=== PATIENT | male | born 1940 | race American Indian/Alaskan Native ===

== ENCOUNTER 2017-12-02 16:40 | Emergency (ER) | payer MEDICARE ==
[2017-12-02] MEDS ORDERED: ASPIRIN PO ONE (17:02)
[2017-12-02 17:23] VITALS: BP 106/63
[2017-12-02] MEDS ORDERED: NACL 0.9% 1000 ML 1,000 ML IV ONE (17:26)
[2017-12-02 17:30] LABS: Basophils % (Auto) 0.7 % (0.0-1.8); Eosinophils # (Auto) 0.1 K/mm3 (0.0-0.4); Eosinophils % (Auto) 2.2 % (0.0-4.3); Hematocrit 32.5 % (35.5-45.6); Hemoglobin 10.6 gm/dl (11.8-15.2); Lymphocytes # (Auto) 0.9 K/mm3 (1.2-5.4); Lymphocytes % (Auto) 22.7 % (13.4-35.0); Mean Corpuscular HGB Conc 33 % (32-34); Mean Corpuscular Hemoglobin 30 pg (28-32); Mean Corpuscular Volume 91 fl (84-94); Monocytes # (Auto) 0.5 K/mm3 (0.0-0.8); Monocytes % (Auto) 13.8 % (0.0-7.3); Platelet Count 177 K/mm3 (140-440); Red Blood Count 3.56 M/mm3 (3.65-5.03); Red Cell Distribution Width 14.2 % (13.2-15.2)
--- NOTE | 2017-12-02 17:30 | Emergency Department Report ---
ED Syncope HPI - General Chief Complaint: Syncope Stated Complaint: SYNCOPE EPISODE Time Seen by Provider: 12/02/17 17:21 - History of Present Illness Initial Comments: Patient is 77 years old male history of hypertension and arthritis. Patient brought by EMS for evaluation of one syncopal episode. Patient stated that he was sitting in a kitchen with his sister while she was cooking and all of a sudden he passed out. Patient stated that the kitchen was really hot. He denied any injury, chest pain or shortness of breath at that time. He just felt lightheaded before he passed out. Patient currently is back to his baseline. Timing/Prior Episodes: no prior history, single episode today Precipitating Factors: Positive: none, lightheadedness Context: sitting Loss of Consciousness: brief (seconds) Current Symptoms: back to normal - Related Data Allergies/Adverse Reactions: Allergies No Known Allergies Allergy (Verified 12/30/14 06:42) Home Medications: Ambulatory Orders Aspirin EC [Aspirin Enteric Coated TAB] 81 mg PO QDAY 12/30/14 Cholecalciferol (Vitamin D3) [Vitamin D3 3,000 unit] 5,000 unit PO DAILY Ciprofloxacin HCl [Ciprofloxacin TAB] 500 mg PO BID 12/30/14 Lisinopril [Zestril TAB] 5 mg PO DAILY 12/30/14 Meloxicam [Mobic] 7.5 mg PO QDAY 12/30/14 Pantoprazole [Protonix TAB] 40 mg PO QDAY 12/30/14 ED Review of Systems ROS: Stated complaint: SYNCOPE EPISODE Other details as noted in HPI Comment: All other systems reviewed and negative Constitutional: denies: chills, fever ENT: denies: throat pain, dental pain Respiratory: denies: cough, orthopnea, shortness of breath, SOB with exertion, wheezing Cardiovascular: denies: chest pain, palpitations, dyspnea on exertion Gastrointestinal: denies: abdominal pain, nausea, vomiting, diarrhea, constipation, hematemesis, melena, hematochezia Genitourinary: denies: urgency, dysuria, frequency, hematuria Musculoskeletal: denies: back pain Neurological: denies: headache, weakness, numbness, paresthesias, confusion, abnormal gait, vertigo ED Past Medical Hx - Past Medical History Hx Hypertension: Yes Hx GERD: Yes Hx Arthritis: Yes (back) - Surgical History Past Surgical History?: No - Social History Smoking Status: Current Every Day Smoker Substance Use Type: Alcohol - Medications Home Medications: Home Medications Medication Instructions Recorded Confirmed Last Taken Type Aspirin EC [Aspirin Enteric Coated 81 mg PO QDAY 12/30/14 12/02/17 12/30/14 History TAB] 81mg Cholecalciferol (Vitamin D3) 5,000 unit PO DAILY 12/30/14 12/02/17 12/29/14 History [Vitamin D3 3,000 unit] 5,000 units Ciprofloxacin HCl [Ciprofloxacin 500 mg PO BID 12/30/14 12/02/17 12/30/14 History TAB] 500mg Lisinopril [Zestril TAB] 5 mg PO DAILY 12/30/14 12/02/17 12/30/14 History 5mg Meloxicam [Mobic] 7.5 mg PO QDAY 12/30/14 12/02/17 12/29/14 History 7.5mg Pantoprazole [Protonix TAB] 40 mg PO QDAY 12/30/14 12/02/17 12/29/14 History 40mg ED Physical Exam - General Limitations: No Limitations General appearance: alert, in no apparent distress - Head Head exam: Present: atraumatic, normocephalic, normal inspection - Eye Eye exam: Present: normal appearance, PERRL - ENT ENT exam: Present: normal exam, normal orophraynx, mucous membranes moist, TM's normal bilaterally, normal external ear exam - Neck Neck exam: Present: normal inspection, full ROM. Absent: tenderness, meningismus, lymphadenopathy, thyromegaly - Respiratory Respiratory exam: Present: normal lung sounds bilaterally. Absent: respiratory distress, wheezes, rales, rhonchi, stridor, chest wall tenderness, accessory muscle use, decreased breath sounds, prolonged expiratory - Cardiovascular Cardiovascular Exam: Present: regular rate, normal rhythm, normal heart sounds - GI/Abdominal GI/Abdominal exam: Present: soft, normal bowel sounds. Absent: distended, tenderness, guarding, rebound, rigid, organomegaly, mass, bruit, pulsatile mass , hernia - Extremities Exam Extremities exam: Present: normal inspection, full ROM, normal capillary refill. Absent: pedal edema, calf tenderness - Back Exam Back exam: Present: normal inspection, full ROM. Absent: tenderness, CVA tenderness (R), CVA tenderness (L), muscle spasm, paraspinal tenderness, vertebral tenderness, rash noted - Neurological Exam Neurological exam: Present: alert, oriented X3, CN II-XII intact, normal gait, reflexes normal - Skin Skin exam: Present: warm, intact, normal color ED Course Vital Signs 12/02/17 17:21 Temperature 98.7 F Pulse Rate 64 Respiratory 16 Rate Blood Pressure 106/63 O2 Sat by Pulse 97 Oximetry - Reevaluation(s) Reevaluation #1: 12/02/17 20:46 Patient stated that he is feeling much better, no syncopal episodes no nausea no vomiting. No chest pain or shortness of breath. ED Medical Decision Making - Lab Data Result diagrams: 12/02/17 17:12 12/02/17 17:12 - EKG Data -: EKG Interpreted by Vt EKG shows normal: sinus rhythm - EKG Data Interpretation: no acute changes - Radiology Data Radiology results: report reviewed Referring Physician: ARLENE DE ANDA Patient Name: ELMA DOYLE Date of : 1940 Sex: Male Report Date: 2017-12-02 Report Status: Finalized Findings [facility] [address] [place] [address] Cat Scan Report Signed Patient: ELMA DOYLE MR#: [id number] : 1940 Acct:[id number] Age/Sex: 77 / M ADM Date: 12/02/17 Loc: ED Attending Dr: Ordering Physician: ARLENE DE ANDA Date of Service: 12/02/17 Procedure(s): CT head/brain wo con Accession Number(s): [id number] cc: ARLENE DE ANDA FINAL REPORT PROCEDURE: CT HEAD/BRAIN WO CON TECHNIQUE: Computerized tomography of the head was performed without contrast material. DLP 1075.62 mGy-cm. HISTORY: Syncope. COMPARISON: No prior studies are available for comparison. FINDINGS: Skull and scalp: Normal. Paranasal sinuses: Moderate opacification of the left maxillary sinus which is heterogeneous/high attenuation. Scattered ethmoid sinus opacification. 8 mm retention cyst in the medial right frontal sinus. Ventricles and subarachnoid spaces: Normal. Cerebrum: No evidence of hemorrhage, acute infarction or mass. Mild atrophy. Subtle patchy areas of periventricular white matter low attenuation, slightly more evident on the right. Punctate bilateral basal ganglia calcifications. Cerebellum and brainstem: No evidence of hemorrhage, acute infarction or mass. Vasculature: Mild atherosclerosis. Comments: Left lens banding. IMPRESSION: Mild atrophy. Patchy periventricular white matter low attenuation, likely chronic small vessel ischemic change. Findings slightly more evident on the right, may be related to patient rotation. Consider further evaluation including MRI of the brain if there is continued clinical concern for subtle superimposed acute process and if patient has no contraindication to MRI. Sinusitis. Slightly heterogeneous/high attenuation in the left maxillary sinus, consider inspissated secretions. Transcribed By: ISIDRO Dictated By: CARMELLA WOOD MD Electronically Authenticated By: CARMELLA WOOD MD Signed Date/Time: 12/02/171404 DD/ 04 TD/TT: 12/02/171404 - Medical Decision Making I reviewed patient previous medical records. Patient had a cardiac cath in 2015 way it showed normal coronary artery with no lesions. Critical care attestation.: If time is entered above; I have spent that time in minutes in the direct care of this critically ill patient, excluding procedure time. ED Disposition Clinical Impression: Syncope Disposition: DC-01 TO HOME OR SELFCARE Is pt being admited?: No Condition: Stable Instructions: Syncope (ED) Referrals: MADISYN VILLAR MD [Primary Care Provider] - 3-5 Days
[2017-12-02 17:36] LABS: BUN/Creatinine Ratio 25; Blood Urea Nitrogen 28 mg/dL (9-20); Hemolysis Index 0
--- NOTE | 2017-12-02 18:09 | Cat Scan Report ---
FINAL REPORT PROCEDURE: CT HEAD/BRAIN WO CON TECHNIQUE: Computerized tomography of the head was performed without contrast material. DLP 1075.62 mGy-cm. HISTORY: Syncope. COMPARISON: No prior studies are available for comparison. FINDINGS: Skull and scalp: Normal. Paranasal sinuses: Moderate opacification of the left maxillary sinus which is heterogeneous/high attenuation. Scattered ethmoid sinus opacification. 8 mm retention cyst in the medial right frontal sinus. Ventricles and subarachnoid spaces: Normal. Cerebrum: No evidence of hemorrhage, acute infarction or mass. Mild atrophy. Subtle patchy areas of periventricular white matter low attenuation, slightly more evident on the right. Punctate bilateral basal ganglia calcifications. Cerebellum and brainstem: No evidence of hemorrhage, acute infarction or mass. Vasculature: Mild atherosclerosis. Comments: Left lens banding. IMPRESSION: Mild atrophy. Patchy periventricular white matter low attenuation, likely chronic small vessel ischemic change. Findings slightly more evident on the right, may be related to patient rotation. Consider further evaluation including MRI of the brain if there is continued clinical concern for subtle superimposed acute process and if patient has no contraindication to MRI. Sinusitis. Slightly heterogeneous/high attenuation in the left maxillary sinus, consider inspissated secretions.
== END 2017-12-02 21:03 | disposition home or self-care (01) ==
LOC: ED 16:40
DX: R55 Syncope and collapse (principal); I10 Essential (primary) hypertension; K21.9 Gastro-esophageal reflux disease without esophagitis; F17.200 Nicotine dependence, unspecified, uncomplicated
CPT/HCPCS: 36415; 70450; 80048; 82962; 84484; 85025; 85379; 93005; 93010; 96360; 99284; J7030